=== PATIENT | female | born 1990 | race American Indian/Alaskan Native ===

== ENCOUNTER 2016-12-03 13:17 | Emergency (ER) | payer BC, MEDICAID ==
[2016-12-03] MEDS ORDERED: MOTRIN PO ONE (18:52)
--- NOTE | 2016-12-03 19:13 | Emergency Department Report ---
<SARMAD MAYFIELD - Last Filed: 12/03/16 18:51> ED General Adult HPI - General Chief complaint: Skin/Abscess/Foreign Body Stated complaint: CHEST PAIN/UTI Source: patient Mode of arrival: Ambulatory Limitations: No Limitations - History of Present Illness Initial comments: 26-year-old female comes in with complaint of right abscess versus lump in her left upper chest wall. Patient reports that has been there for 3 weeks it comes and goes pain comes and goes. She has not seen anyone for this issue. Denies any fever chills no nausea no vomiting. He reports that the lump is tender to touch. Severity scale (0 -10): 5 - Related Data Previous Rx's Medication Instructions Recorded Last Taken Type traMADol [Ultram] 50 mg PO Q4HR PRN #20 tablet 02/13/16 Unknown Rx Sulfamethoxazole/Trimethoprim 1 each PO BID #10 tablet 06/26/16 Unknown Rx [Bactrim DS TAB] HYDROcodone/APAP 7.5-325 [[place] 1 each PO Q8HR PRN #10 tablet 10/07/16 Unknown Rx 7.5-325 mg TAB] Ondansetron [Zofran TAB] 4 mg PO Q8HR PRN #14 tablet 10/07/16 Unknown Rx Vit-Fe Fumar-FA [ 1 tab PO QDAY #31 tablet 10/07/16 Unknown Rx Vitamin] Ibuprofen [Motrin] 800 mg PO Q8HR PRN #30 tablet 12/03/16 Unknown Rx Nitrofurantoin Long/M-Cryst 100 mg PO Q12HR #14 capsule 12/03/16 Unknown Rx [Macrobid CAP] Allergies Allergy/AdvReac Type Severity Reaction Status Date / Time Latex, Natural Rubber Allergy Hives Verified 10/07/16 19:54 Penicillins Allergy Hives Verified 10/07/16 19:54 ED Review of Systems ROS: Stated complaint: CHEST PAIN/UTI Other details as noted in HPI Constitutional: denies: chills, fever Eyes: denies: eye pain, eye discharge, vision change ENT: denies: ear pain, throat pain Respiratory: denies: cough, shortness of breath, wheezing Cardiovascular: denies: chest pain, palpitations Genitourinary: denies: urgency, dysuria, discharge Skin: other Neurological: denies: headache, weakness, paresthesias Psychiatric: denies: anxiety, depression ED Past Medical Hx - Past Medical History Additional medical history: anemia - Social History Smoking Status: Never Smoker Substance Use Type: None - Medications Home Medications: Home Medications Medication Instructions Recorded Confirmed Last Taken Type traMADol [Ultram] 50 mg PO Q4HR PRN #20 tablet 02/13/16 Unknown Rx Sulfamethoxazole/Trimethoprim 1 each PO BID #10 tablet 06/26/16 Unknown Rx [Bactrim DS TAB] HYDROcodone/APAP 7.5-325 [[place] 1 each PO Q8HR PRN #10 tablet 10/07/16 Unknown Rx 7.5-325 mg TAB] Ondansetron [Zofran TAB] 4 mg PO Q8HR PRN #14 tablet 10/07/16 Unknown Rx Vit-Fe Fumar-FA [ 1 tab PO QDAY #31 tablet 10/07/16 Unknown Rx Vitamin] Ibuprofen [Motrin] 800 mg PO Q8HR PRN #30 tablet 12/03/16 Unknown Rx Nitrofurantoin Long/M-Cryst 100 mg PO Q12HR #14 capsule 12/03/16 Unknown Rx [Macrobid CAP] ED Physical Exam - General Limitations: No Limitations General appearance: alert, in no apparent distress - Head Head exam: Present: atraumatic, normocephalic - Eye Eye exam: Present: normal appearance - ENT ENT exam: Present: mucous membranes moist - Neck Neck exam: Present: normal inspection - Respiratory Respiratory exam: Present: normal lung sounds bilaterally, chest wall tenderness (left upper chest tenderness with indurated non-erythematous lesion) . Absent: respiratory distress - Cardiovascular Cardiovascular Exam: Present: regular rate, normal rhythm. Absent: systolic murmur, diastolic murmur, rubs, gallop - GI/Abdominal GI/Abdominal exam: Present: soft, normal bowel sounds ED Course Vital Signs 12/03/16 12/03/16 12/03/16 13:27 18:43 20:35 Temperature 98.2 F 98.3 F Pulse Rate 104 H 83 Respiratory 18 16 16 Rate Blood Pressure 109/74 Blood Pressure 134/84 [Left] O2 Sat by Pulse 100 100 Oximetry 12/03/16 22:13 Temperature 98.1 F Pulse Rate 73 Respiratory 20 Rate Blood Pressure Blood Pressure 107/76 [Left] O2 Sat by Pulse 99 Oximetry ED Medical Decision Making - Radiology Data FINAL REPORT EXAM: XR CHEST ROUTINE 2V HISTORY: chest wall lesion TECHNIQUE: 2 views of the chest. PRIORS: None. FINDINGS: The cardiomediastinal silhouette appears normal. The lungs are clear. The bones and soft tissues are unremarkable. IMPRESSION: No evidence of acute cardiopulmonary disease Transcribed By: MLG Dictated By: RAHEEL GARRISON MD Electronically Authenticated By: RAHEEL GARRISON MD Signed Date/Time: 12/03/162118 - Medical Decision Making Patient's been evaluated by this provider in fast track. We will give patient ibuprofen for pain since she is driving. Ordered a chest x-ray EKG was done which was normal sinus rhythm. Reevaluate patient after x-ray is back Critical care attestation.: If time is entered above; I have spent that time in minutes in the direct care of this critically ill patient, excluding procedure time. ED Disposition Clinical Impression: Urinary tract infection Qualifiers: Urinary tract infection type: site unspecified Hematuria presence: with hematuria Qualified Code(s): N39.0 - Urinary tract infection, site not specified ; R31.9 - Hematuria, unspecified Disposition: DISCHARGED TO HOME OR SELFCARE Is pt being admited?: No Does the pt Need Aspirin: No Condition: Stable Instructions: Urinary Tract Infection in Women (ED) Additional Instructions: Important to follow the primary care provider. For further evaluation of the chest wall mass. Prescriptions: Ibuprofen [Motrin] 800 mg PO Q8HR PRN #30 tablet PRN Reason: Pain Nitrofurantoin Long/M-Cryst [Macrobid CAP] 100 mg PO Q12HR #14 capsule Referrals: OSCAR MARROQUIN MD [Primary Care Provider] - 3-5 Days Forms: Work/School Release Form(ED) <NOE RIVERA - Last Filed: 12/03/16 22:33> ED Medical Decision Making - Medical Decision Making urinary tract infection per UA ED Disposition Is pt being admited?: No Does the pt Need Aspirin: No Time of Disposition: 22:33
--- NOTE | 2016-12-03 20:22 | XRay Report ---
FINAL REPORT EXAM: XR CHEST ROUTINE 2V HISTORY: chest wall lesion TECHNIQUE: 2 views of the chest. PRIORS: None. FINDINGS: The cardiomediastinal silhouette appears normal. The lungs are clear. The bones and soft tissues are unremarkable. IMPRESSION: No evidence of acute cardiopulmonary disease
[2016-12-03 22:00] LABS: Bilirubin,Urine NEG (Negative); Blood,Urine MOD (Negative); Ketones,Urine TR mg/dL (Negative); Leukocyte Esterase,Urine LG (Negative); Mucus,Urine FEW /HPF; Nitrite,Urine POS (Negative); Urobilinogen,Urine < 2.0 mg/dL (<2.0)
[2016-12-03 22:03] LABS: WBC,Urine > 182.0 /HPF (0.0-6.0)
[2016-12-03 22:14] VITALS: BP 107/76
== END 2016-12-03 22:48 | disposition home or self-care (01) ==
LOC: ED 13:17
DX: N39.0 Urinary tract infection, site not specified (principal); R07.9 Chest pain, unspecified; D64.9 Anemia, unspecified; Z88.0 Allergy status to penicillin; Z91.040 Latex allergy status
CPT/HCPCS: 71020; 81001; 93005; 93010; 99284

== ENCOUNTER 2018-12-22 10:27 | Emergency (ER) | payer MEDICAID ==
[2018-12-22] MEDS ORDERED: BABY ASPIRIN PO ONE (11:13)
[2018-12-22] MEDS ORDERED: NITROSTAT SL ONE (11:13)
[2018-12-22] MEDS ORDERED: MORPHINE IV ONE (11:14)
[2018-12-22] MEDS ORDERED: ZOFRAN IV ONE (11:14)
--- NOTE | 2018-12-22 11:19 | Emergency Department Report ---
<GENEVIEVE CHEW - Last Filed: 12/22/18 18:25> ED General Adult HPI - General Chief complaint: Chest Pain Stated complaint: CHEST PAIN/SOB Time Seen by Provider: 12/22/18 10:51 - Related Data Previous Rx's Medication Instructions Recorded Last Taken Type traMADol [Ultram] 50 mg PO Q4HR PRN #20 tablet 02/13/16 Unknown Rx Sulfamethoxazole/Trimethoprim 1 each PO BID #10 tablet 06/26/16 Unknown Rx [Bactrim DS TAB] HYDROcodone/APAP 7.5-325 [[place] 1 each PO Q8HR PRN #10 tablet 10/07/16 Unknown Rx 7.5-325 mg TAB] Ondansetron [Zofran TAB] 4 mg PO Q8HR PRN #14 tablet 10/07/16 Unknown Rx RX: Vit-Fe Fumar-FA 1 tab PO QDAY #31 tablet 10/07/16 Unknown Rx [ Vitamin] Ibuprofen [Motrin] 800 mg PO Q8HR PRN #30 tablet 12/03/16 Unknown Rx Nitrofurantoin [place]/M-Cryst 100 mg PO Q12HR #14 capsule 12/03/16 Unknown Rx [Macrobid CAP] Ketorolac [Toradol] 10 mg PO Q6H PRN #14 tablet 12/22/18 Unknown Rx Allergies Allergy/AdvReac Type Severity Reaction Status Date / Time Latex, Natural Rubber Allergy Hives Verified 12/22/18 10:36 Penicillins Allergy Hives Verified 12/22/18 10:36 ED Past Medical Hx - Medications Home Medications: Home Medications Medication Instructions Recorded Confirmed Last Taken Type traMADol [Ultram] 50 mg PO Q4HR PRN #20 tablet 02/13/16 Unknown Rx Sulfamethoxazole/Trimethoprim 1 each PO BID #10 tablet 06/26/16 Unknown Rx [Bactrim DS TAB] HYDROcodone/APAP 7.5-325 [[place] 1 each PO Q8HR PRN #10 tablet 10/07/16 Unknown Rx 7.5-325 mg TAB] Ondansetron [Zofran TAB] 4 mg PO Q8HR PRN #14 tablet 10/07/16 Unknown Rx RX: Vit-Fe Fumar-FA 1 tab PO QDAY #31 tablet 10/07/16 Unknown Rx [ Vitamin] Ibuprofen [Motrin] 800 mg PO Q8HR PRN #30 tablet 12/03/16 Unknown Rx Nitrofurantoin [place]/M-Cryst 100 mg PO Q12HR #14 capsule 12/03/16 Unknown Rx [Macrobid CAP] Ketorolac [Toradol] 10 mg PO Q6H PRN #14 tablet 12/22/18 Unknown Rx ED Medical Decision Making - Lab Data Result diagrams: 12/22/18 11:48 12/22/18 11:48 - Radiology Data Radiology results: report reviewed interpreted by me: CT scan shows no pulmonary embolism but does have a licensed mental health counselor. The right upper lobe with a recommendation to follow 4-6 months. - Medical Decision Making Advised patient of the findings of the CT scan and the importance of follow-up for definitive management therapy also possibly importance of follow-up with her primary care provider for reevaluation of her chest x-ray as there appears to be in no imminent danger with what we have found her there of today ED Disposition Clinical Impression: Pulmonary nodule, right, Chest pain Disposition: TO HOME OR SELFCARE Condition: Stable Instructions: Chest Pain (ED), Pulmonary Nodules (ED) Additional Instructions: CT scan of the chest revealed no pulmonary embolism. Review have a pulmonary nodule to the right upper lobe, lobe which appears to be nonspecific recommended she follow up on this nodular 4-6 month with a with a licensed mental health counselor or primary care provider Prescriptions: Ketorolac [Toradol] 10 mg PO Q6H PRN #14 tablet PRN Reason: Pain [facility] SILVIANO [Primary Care Provider] - 3-5 Days [facility] [Provider Group] - 3-5 Days Forms: Work/School Release Form(ED) <SHELLY KONG - Last Filed: 12/23/18 19:57> ED General Adult HPI - General Source: patient Mode of arrival: Ambulatory Limitations: No Limitations - History of Present Illness Initial comments: The patient presents to the Emergency department for a chief complaint of chest pain that started 30 minutes prior to arrival. Patient states she was at work when the chest pain began. Patient states she was not doing anything at the time of the presentation of chest pain. Patient states the pain is located in the center of her chest and radiates to her left arm. Patient also complains of being short of breath as well. Patient denies any abdominal pain, slurred speech, headache. -: Sudden Location: chest Radiation: extremity Severity scale (0 -10): 8 Quality: sharp Consistency: constant Improves with: none Worsens with: none Associated Symptoms: denies other symptoms Treatments Prior to Arrival: none ED Review of Systems ROS: Stated complaint: CHEST PAIN/SOB Other details as noted in HPI Comment: All other systems reviewed and negative Constitutional: denies: chills, fever Eyes: denies: eye pain, eye discharge, vision change ENT: denies: ear pain, throat pain Respiratory: denies: cough, shortness of breath, wheezing Cardiovascular: chest pain. denies: palpitations Endocrine: no symptoms reported Gastrointestinal: denies: abdominal pain, nausea, diarrhea Genitourinary: denies: urgency, dysuria, discharge Musculoskeletal: denies: back pain, joint swelling, arthralgia Skin: denies: rash, lesions Neurological: denies: headache, weakness, paresthesias Psychiatric: denies: anxiety, depression Hematological/Lymphatic: denies: easy bleeding, easy bruising ED Past Medical Hx - Past Medical History Previous Medical History?: Yes Additional medical history: anemia - Surgical History Past Surgical History?: Yes - Social History Smoking Status: Never Smoker Substance Use Type: None ED Physical Exam - General Limitations: No Limitations, Other (tearful) General appearance: alert, in no apparent distress - Head Head exam: Present: atraumatic, normocephalic - Eye Eye exam: Present: normal appearance, PERRL, EOMI - ENT ENT exam: Present: mucous membranes moist - Neck Neck exam: Present: normal inspection - Respiratory Respiratory exam: Present: normal lung sounds bilaterally. Absent: respiratory distress, wheezes, rales, rhonchi - Cardiovascular Cardiovascular Exam: Present: regular rate, normal rhythm. Absent: systolic murmur, diastolic murmur, rubs, gallop - GI/Abdominal GI/Abdominal exam: Present: soft, normal bowel sounds. Absent: distended, tenderness - Extremities Exam Extremities exam: Present: normal inspection - Back Exam Back exam: Present: normal inspection - Neurological Exam Neurological exam: Present: alert, oriented X3, CN II-XII intact. Absent: motor sensory deficit - Psychiatric Psychiatric exam: Present: normal affect, normal mood - Skin Skin exam: Present: warm, dry, intact, normal color. Absent: rash ED Course Vital Signs 12/22/18 12/22/18 10:32 17:47 Temperature 97.5 F L 97.3 F L Pulse Rate 116 H 50 L Respiratory 28 H 15 Rate Blood Pressure 145/83 112/69 O2 Sat by Pulse 100 100 Oximetry ED Medical Decision Making - Lab Data Result diagrams: 12/22/18 11:48 12/22/18 11:48 - Medical Decision Making Results discussed with patient Critical care attestation.: If time is entered above; I have spent that time in minutes in the direct care of this critically ill patient, excluding procedure time. ED Disposition Is pt being admited?: No Does the pt Need Aspirin: No
[2018-12-22 12:00] LABS: Basophils % (Auto) 1.2 % (0.0-1.8); Eosinophils # (Auto) 0.1 K/mm3 (0.0-0.4); Eosinophils % (Auto) 1.8 % (0.0-4.3); Hematocrit 33.7 % (30.3-42.9); Hemoglobin 10.8 gm/dl (10.1-14.3); Lymphocytes # (Auto) 1.1 K/mm3 (1.2-5.4); Lymphocytes % (Auto) 33.5 % (13.4-35.0); Mean Corpuscular HGB Conc 32 % (30-34); Mean Corpuscular Volume 77 fl (79-97); Monocytes # (Auto) 0.5 K/mm3 (0.0-0.8); Monocytes % (Auto) 14.9 % (0.0-7.3); Platelet Count 215 K/mm3 (140-440); Red Cell Distribution Width 15.1 % (13.2-15.2)
--- NOTE | 2018-12-22 12:00 | XRay Report ---
ROUTINE CHEST, TWO VIEWS: HISTORY: Shortness of breath. The trachea, heart, mediastinal contour, lung cassidy and bony thorax are unremarkable. No significant change since 12/03/16. IMPRESSION: Unremarkable chest x-ray.
[2018-12-22 12:18] LABS: Alanine Aminotransferase 11 units/L (7-56); BUN/Creatinine Ratio 16; Blood Urea Nitrogen 11 mg/dL (7-17); Calcium 9.1 mg/dL (8.4-10.2); Hemolysis Index 3
[2018-12-22 12:29] LABS: INR 0.95 (0.87-1.13); Partial Thromboplastin Time 20.7 Sec. (24.2-36.6)
[2018-12-22 13:54] LABS: Amphetamine Screen,Urine PRESUMPTIVE NEGATIVE; Benzodiazepines Screen,Urine PRESUMPTIVE NEGATIVE; Cocaine Screen,Urine PRESUMPTIVE NEGATIVE; Methadone Screen,Urine PRESUMPTIVE NEGATIVE; Opiate Screen,Urine PRESUMPTIVE NEGATIVE
[2018-12-22 13:58] LABS: Bilirubin,Urine NEG (Negative); Blood,Urine MOD (Negative); Color,Urine Straw (Yellow); Protein,Urine <15 mg/dL mg/dL (Negative); Urobilinogen,Urine < 2.0 mg/dL (<2.0)
[2018-12-22 14:05] LABS: Cannabinoid Screen,Urine PRESUMPTIVE POSITIVE
--- NOTE | 2018-12-22 17:36 | Cat Scan Report ---
PROCEDURE: CT ANGIOGRAM OF THE CHEST FOR PULMONARY EMBOLISM TECHNIQUE: Computerized axial tomographic angiography of the chest and pulmonary arteries was perfor med during the IV injection of iodinated nonionic contrast. The image data was postprocessed using ma ximum intensity projection (MIP) and 2-dimensional multiplanar reformatted (MPR) techniques. The exam ination is specifically tailored to the evaluation of the pulmonary arteries per clinical request. A utomated exposure control, adjustment of mA and/or kV according to patient size, or iterative reconst ruction dose optimization techniques were utilized. CPT G9637, 36460 HISTORY: Shortness of breath R06.02, chest pain unspecified R07.9 , elevated d-dimer. Evaluate pulmo nary embolus. COMPARISONS: None . FINDINGS: Pulmonary out flow tract, right and left main pulmonary arteries and the approximal branches: Clear, no filling defects seen to suggest pulmonary embolus. Pericardium: No evidence of pericardial effusion. Thoracic aorta: No evidence of aneurysmal dilatation or dissection. Coronary arteries: Unremarkable. Mediastinum and hilar regions: Non specific subcentimeter lymph nodes are visualized. No pathologica lly enlarged lymph nodes or masses are identified. Lung O[place]: There is a small noncalcified 4.2 mm nodule in the right upper lobe image 88 series 3 ax ial image. No other nodules are identified. No infiltrates or effusions are seen. No evidence of pneu mothorax.. Upper abdomen: No acute or focal abnormality is seen. Other: None. IMPRESSION: No evidence of pulmonary embolus. Small noncalcified pulmonary nodule right upper lobe. This is nonspecific. This could represent a sma ll focal area of inflammatory fibrosis. Other pulmonary nodules including malignant change not entire ly excluded. Consider follow-up exam in 4-6 months to ensure stability. This document is electronically signed by Adrian Patel MD., December 22 2018 05:33:40 PM ET
[2018-12-22 17:58] VITALS: BP 112/69
[2018-12-22] MEDS ORDERED: PERCOCET 5/325 PO STA (18:47)
== END 2018-12-22 18:52 | disposition home or self-care (01) ==
LOC: ED 10:27
DX: R91.1 Solitary pulmonary nodule (principal); Z88.0 Allergy status to penicillin; Z91.040 Latex allergy status; Z91.048 Other nonmedicinal substance allergy status
CPT/HCPCS: 36415; 71046; 71275; 80053; 80307; 81001; 83690; 83880; 84484; 84703; 85025; 85379; 85610; 85730; 93005; 93010; 96374; 96375; 99285; J2270; J2405; Q9967

== ENCOUNTER 2018-12-23 20:29 | Emergency (ER) | payer MEDICAID ==
[2018-12-23] MEDS ORDERED: ASPIRIN PO ONE (20:58)
--- NOTE | 2018-12-23 21:03 | Emergency Department Report ---
Blank Doc - Documentation Documentation: This is a 28 y.o. female that presents with chest pain. Mom states patient pa ssed out today around 1850 today and arousable but nonverbal for about 20 minutes. Patient seen in this ER yesterday with chest pain. Ordered labs. Fast track for further evaluation.
[2018-12-23 21:49] LABS: Basophils % (Auto) 1.3 % (0.0-1.8); Eosinophils # (Auto) 0.1 K/mm3 (0.0-0.4); Eosinophils % (Auto) 4.2 % (0.0-4.3); Hematocrit 39.4 % (30.3-42.9); Hemoglobin 12.4 gm/dl (10.1-14.3); Lymphocytes # (Auto) 1.4 K/mm3 (1.2-5.4); Lymphocytes % (Auto) 45.4 % (13.4-35.0); Mean Corpuscular HGB Conc 32 % (30-34); Mean Corpuscular Volume 77 fl (79-97); Monocytes # (Auto) 0.3 K/mm3 (0.0-0.8); Monocytes % (Auto) 10.5 % (0.0-7.3); Platelet Count 250 K/mm3 (140-440); Red Blood Count 5.11 M/mm3 (3.65-5.03); Red Cell Distribution Width 15.4 % (13.2-15.2)
[2018-12-23 22:04] LABS: BUN/Creatinine Ratio 16; Blood Urea Nitrogen 13 mg/dL (7-17); Calcium 9.6 mg/dL (8.4-10.2); Hemolysis Index 9
[2018-12-24 00:13] VITALS: BP 132/83
--- NOTE | 2018-12-24 00:23 | Emergency Department Report ---
ED Chest Pain HPI - General Chief Complaint: Chest Pain Stated Complaint: VALENTIN Time Seen by Provider: 12/23/18 20:54 Source: patient Mode of arrival: Ambulatory Limitations: No Limitations - History of Present Illness Initial Comments: Patient is 28 years old female with no significant past medical history. Patient presented to the ER complaining of substernal chest pain, sharp in nature was no radiation. Pain increased with movement and improved with remaining still. Patient was seen here yesterday for the same symptoms and she had a CTA chest which was negative for pulmonary embolism. Patient denied any fever or cough. MD Complaint: chest pain -: Last night Pain Location: substernal Severity scale (0 -10): 8 Quality: sharp Consistency: intermittent Improves With: remaining still Worsens With: movement - Related Data Previous Rx's Medication Instructions Recorded Last Taken Type traMADol [Ultram] 50 mg PO Q4HR PRN #20 tablet 02/13/16 Unknown Rx Sulfamethoxazole/Trimethoprim 1 each PO BID #10 tablet 06/26/16 Unknown Rx [Bactrim DS TAB] HYDROcodone/APAP 7.5-325 [[place] 1 each PO Q8HR PRN #10 tablet 10/07/16 Unknown Rx 7.5-325 mg TAB] Ondansetron [Zofran TAB] 4 mg PO Q8HR PRN #14 tablet 10/07/16 Unknown Rx Vit-Fe Fumar-FA [ 1 tab PO QDAY #31 tablet 10/07/16 Unknown Rx Vitamin] Ibuprofen [Motrin] 800 mg PO Q8HR PRN #30 tablet 12/03/16 Unknown Rx Nitrofurantoin [place]/M-Cryst 100 mg PO Q12HR #14 capsule 12/03/16 Unknown Rx [Macrobid CAP] Ketorolac [Toradol] 10 mg PO Q6H PRN #14 tablet 12/22/18 Unknown Rx Allergies Allergy/AdvReac Type Severity Reaction Status Date / Time Latex, Natural Rubber Allergy Hives Verified 12/22/18 10:36 Penicillins Allergy Hives Verified 12/22/18 10:36 Heart Score - HEART Score History: Slightly suspicious EKG: Normal Age: < 45 Risk factors: No known risk factors Troponin: < normal limit HEART Score: 0 - Critical Actions Critical Actions: 0-3 pts:0.9-1.7%risk of adverse cardiac event.Candidate for discharge ED Review of Systems ROS: Stated complaint: VALENTIN Other details as noted in HPI Comment: All other systems reviewed and negative Constitutional: denies: chills, fever Respiratory: denies: cough, orthopnea, shortness of breath, SOB with exertion, SOB at rest, wheezing Cardiovascular: chest pain. denies: palpitations, dyspnea on exertion Gastrointestinal: denies: abdominal pain, nausea, vomiting Musculoskeletal: denies: back pain ED Past Medical Hx - Past Medical History Previous Medical History?: No Additional medical history: anemia - Surgical History Past Surgical History?: No - Social History Smoking Status: Never Smoker Substance Use Type: Marijuana - Medications Home Medications: Home Medications Medication Instructions Recorded Confirmed Last Taken Type traMADol [Ultram] 50 mg PO Q4HR PRN #20 tablet 02/13/16 Unknown Rx Sulfamethoxazole/Trimethoprim 1 each PO BID #10 tablet 06/26/16 Unknown Rx [Bactrim DS TAB] HYDROcodone/APAP 7.5-325 [[place] 1 each PO Q8HR PRN #10 tablet 10/07/16 Unknown Rx 7.5-325 mg TAB] Ondansetron [Zofran TAB] 4 mg PO Q8HR PRN #14 tablet 10/07/16 Unknown Rx Vit-Fe Fumar-FA [ 1 tab PO QDAY #31 tablet 10/07/16 Unknown Rx Vitamin] Ibuprofen [Motrin] 800 mg PO Q8HR PRN #30 tablet 12/03/16 Unknown Rx Nitrofurantoin [place]/M-Cryst 100 mg PO Q12HR #14 capsule 12/03/16 Unknown Rx [Macrobid CAP] Ketorolac [Toradol] 10 mg PO Q6H PRN #14 tablet 12/22/18 Unknown Rx ED Physical Exam - General Limitations: No Limitations General appearance: alert, in no apparent distress - Head Head exam: Present: atraumatic, normocephalic, normal inspection - Eye Eye exam: Present: normal appearance, PERRL - ENT ENT exam: Present: normal exam, normal orophraynx, mucous membranes moist - Neck Neck exam: Present: normal inspection, full ROM. Absent: tenderness, meningismus, lymphadenopathy, thyromegaly - Respiratory Respiratory exam: Present: normal lung sounds bilaterally, chest wall tenderness - Cardiovascular Cardiovascular Exam: Present: regular rate, normal rhythm, normal heart sounds - GI/Abdominal GI/Abdominal exam: Present: soft. Absent: distended, tenderness, guarding, rebound, rigid - Extremities Exam Extremities exam: Present: normal inspection, full ROM, normal capillary refill. Absent: pedal edema, calf tenderness - Back Exam Back exam: Present: normal inspection, full ROM. Absent: tenderness, CVA tenderness (R), CVA tenderness (L), muscle spasm, paraspinal tenderness, vertebral tenderness - Neurological Exam Neurological exam: Present: alert, oriented X3, CN II-XII intact, normal gait, reflexes normal - Skin Skin exam: Present: warm, intact, normal color ED Course Vital Signs 12/23/18 12/24/18 12/24/18 20:54 00:11 00:13 Temperature 97.8 F 98.4 F Pulse Rate 65 57 L 51 L Respiratory 26 H 14 Rate Blood Pressure 120/75 Blood Pressure 132/83 [Right] O2 Sat by Pulse 100 98 Oximetry ED Medical Decision Making - Lab Data Result diagrams: 12/23/18 21:22 12/23/18 21:22 - EKG Data -: EKG Interpreted by Me EKG shows normal: sinus rhythm Rate: bradycardia - EKG Data Interpretation: no acute changes - Radiology Data Radiology results: report reviewed Critical care attestation.: If time is entered above; I have spent that time in minutes in the direct care of this critically ill patient, excluding procedure time. ED Disposition Clinical Impression: Chest pain, Costochondritis, acute Disposition: DC-01 TO HOME OR SELFCARE Is pt being admited?: No Condition: Stable Instructions: Chest Pain (ED), Costochondritis (ED) Referrals: [facility] [Provider Group] - 3-5 Days
== END 2018-12-24 00:54 | disposition home or self-care (01) ==
LOC: ED 20:29
DX: M94.0 Chondrocostal junction syndrome [Tietze] (principal); Z88.0 Allergy status to penicillin; Z91.040 Latex allergy status; Z86.2 Personal history of diseases of the blood and blood-forming organs and certain disorders involving the immune mechanism
CPT/HCPCS: 36415; 80048; 84484; 85025; 93005; 93010; 99284